=== PATIENT | male | born 1940 | race Caucasian/White ===

== ENCOUNTER 2016-11-02 20:17 | Emergency (ER) | payer OTHER ==
[2016-11-02 23:49] VITALS: BP 120/60
== END 2016-11-02 23:30 | disposition home or self-care (01) ==
LOC: ED 20:17
DX: S32.019A Unspecified fracture of first lumbar vertebra, initial encounter for closed fracture (principal); W01.0XXA Fall on same level from slipping, tripping and stumbling without subsequent striking against object, initial encounter; Y99.8 Other external cause status; Y93.89 Activity, other specified; Y92.89 Other specified places as the place of occurrence of the external cause
CPT/HCPCS: 72072

== ENCOUNTER 2018-10-01 10:48 | Emergency (ER) | payer OTHER ==
[~2018-10-01] VITALS: Ht 172.7 cm; Wt 90.7 kg
[2018-10-01 10:59] VITALS: Ht 172.7 cm; Wt 90.7 kg
[2018-10-01 13:13] VITALS: BP 127/87
== END 2018-10-01 13:13 | disposition home or self-care (01) ==
LOC: ED 10:48
DX: S32.019A Unspecified fracture of first lumbar vertebra, initial encounter for closed fracture (principal); M51.36 Other intervertebral disc degeneration, lumbar region; M54.41 Lumbago with sciatica, right side; X58.XXXA Exposure to other specified factors, initial encounter; Y93.89 Activity, other specified; Y92.89 Other specified places as the place of occurrence of the external cause; Y99.8 Other external cause status
CPT/HCPCS: J1885; J3010; Q0162